=== PATIENT | male | born 1965 | race Caucasian/White ===

== ENCOUNTER 2024-04-14 01:47 | Observation (INO) | payer SELFPAY ==
[2024-04-14] VITALS (8 sets, daily range): BP systolic 134–201; BP diastolic 66–92; PULSE 72–148; RESP 17–24; TEMP 36.9–37.9; O2SAT 90–96; BMI 35.9; BMI 35.4
--- NOTE | 2024-04-14 01:53 | CT_ITS ---
PROCEDURE INFORMATION: Exam: CT Abdomen And Pelvis With Contrast Exam date and time: 04/14/2024 3:04 AM Age: 58 years old Clinical indication: Other: Discoloration around umbilicus; Additional info: SOA tachy sepsis, discoloration around umbilicus TECHNIQUE: Imaging protocol: Computed tomography of the abdomen and pelvis with contrast. 3D rendering (Not supervised by radiologist): MIP and/or 3D reconstructed images were created by the technologist. Radiation optimization: All CT scans at this facility use at least one of these dose optimization techniques: automated exposure control; mA and/or kV adjustment per patient size (includes targeted exams where dose is matched to clinical indication); or iterative reconstruction. Contrast material: ISOVUE; Contrast volume: 70 ml; Contrast route: IV; COMPARISON: CT ANGIO CHEST PE PROTOCOL 04/14/2024 3:04 AM FINDINGS: Lungs: Focal airspace disease is seen in the right lower lobe consistent with aspiration or infiltrate. Liver: Normal. No mass. Gallbladder and biliary ducts: Normal. No calcified stones. No ductal dilation. Pancreas: Normal. No ductal dilation. Spleen: Normal. No splenomegaly. Adrenal glands: Normal. No mass. Kidneys and ureters: Normal. No hydronephrosis. Stomach and bowel: Unremarkable. No obstruction. No mucosal thickening. Appendix: No evidence of appendicitis. Intraperitoneal space: Unremarkable. No free air. No significant fluid collection. Vasculature: Unremarkable. No abdominal aortic aneurysm. Lymph nodes: Unremarkable. No enlarged lymph nodes. Urinary bladder: Unremarkable as visualized. Reproductive: Unremarkable as visualized. Bones/joints: Degenerative disc disease with multilevel vacuum disc phenomena and disc space narrowing. Soft tissues: Fat containing periumbilical hernia, no bowel involvement.. IMPRESSION: 1. No acute abdominal or pelvic process. 2. Fat containing periumbilical hernia, no bowel involvement. No acute periumbilical process otherwise identified.
--- NOTE | 2024-04-14 01:53 | CT_ITS ---
PROCEDURE INFORMATION: Exam: CTA Chest With Contrast Exam date and time: 04/14/2024 3:04 AM Age: 58 years old Clinical indication: Shortness of breath; Additional info: SOA pleuritic pain tachy TECHNIQUE: Imaging protocol: Computed tomographic angiography of the chest with contrast. Exam focused on the arteries. 3D rendering (Not supervised by radiologist): MIP and/or 3D reconstructed images were created by the technologist. Radiation optimization: All CT scans at this facility use at least one of these dose optimization techniques: automated exposure control; mA and/or kV adjustment per patient size (includes targeted exams where dose is matched to clinical indication); or iterative reconstruction. Contrast material: ISOVUE; Contrast volume: 70 ml; Contrast route: INTRAVENOUS (IV); COMPARISON: CT ANGIO CHEST PE PROTOCOL 04/14/2024 3:04 AM FINDINGS: Pulmonary arteries: There is suboptimal enhancement of the pulmonary arteries, within this limitation no definite pulmonary emboli are noted but sensitivity for smaller emboli is limited. Aorta: Unremarkable. No aortic aneurysm. No aortic dissection. Lungs: Right lower lobe airspace disease likely infiltrate. Pleural spaces: Unremarkable. No pneumothorax. No pleural effusion. Heart: No coronary calcification is noted. . No cardiomegaly. No pericardial effusion. Lymph nodes: Unremarkable. No enlarged lymph nodes. Bones/joints: Unremarkable. No acute fracture. Soft tissues: Unremarkable. IMPRESSION: No evidence of pulmonary embolus, however there is suboptimal enhancement of the pulmonary arteries which limits sensitivity for smaller emboli. Right lower lobe airspace disease likely infiltrate.
--- NOTE | 2024-04-14 01:54 | XR_ITS ---
PROCEDURE INFORMATION: Exam: XR Chest Exam date and time: 04/14/2024 2:11 AM Age: 58 years old Clinical indication: Shortness of breath; Additional info: SOA TECHNIQUE: Imaging protocol: Radiologic exam of the chest. Views: 1 view. Total images: 1 COMPARISON: No relevant prior studies available. FINDINGS: Lungs: Unremarkable. No consolidation. No pulmonary vascular congestion or edema. Pleural spaces: Unremarkable. No pleural effusion. No pneumothorax. Heart/Mediastinum: Unremarkable. No cardiomegaly. No mediastinal widening or hilar enlargement. Bones/joints: Unremarkable. IMPRESSION: No radiographically acute cardiopulmonary process.
--- NOTE | 2024-04-14 01:56 | ECG_ITS ---
APPROVED REPORT Exam: Resting ECG HR:137 bpm ECG Measurements Heart Rate 137 AXES MO 162 P 57 QRSd 101 QRS 68 QT 366 T 58 QTc 446 Conclusion SINUS TACHYCARDIA POSSIBLE RIGHT VENTRICULAR CONDUCTION DELAY [RSR (QR) IN V1/V2] NONSPECIFIC ST & T-WAVE ABNORMALITY NO STEMI Electronically signed by : POOJA JASSO, 04/14/2024 06:53:03
--- NOTE | 2024-04-14 02:12 | [facility].EDGENADL ---
Discharge Plan Disposition Chief Complaint: PAIN Referrals Follow up/Referrals: Provider,Referral, [Primary Care Provider] - See instructions Clinical Impressions Clinical Impression: Sepsis, Pneumonia, Elevated hemoglobin A1c, Acidosis, lactic Print Language Print Language: [place] Discharge ED Provider: Larisa Rodriguez General Adult HPI General Chief complaint: PAIN Stated complaint: High HR, SOB Time Seen by Provider: 04/14/24 01:48 Mode of Arrival: Ambulatory Source of Information: Patient Limitations: No Limitations Description of Symptoms (Recalled from ER Triage Doc. by RN): Patient presents to ED with c/o of sharp pain to his middle right side back area when he coughs or takes a deep breath. Patient reports he has not felt well in over a week with upper respiratory symptoms. patient states his apple watch went off and alarmed him that his HR was 150 as well. History of Present Illness HPI narrative: 58-year-old male who reports he has not been to a primary care doctor in more than 25 years and therefore reports no chronic medical conditions, no daily medications presents to the ER with complaints of pain in his right middle back with deep inspiration. He reports he has not felt well in over a week with upper respiratory symptoms and states his cough has been worse in the last 3 days. He has not had documented fever at home. He reports after the pain started, patient looked at his Apple Watch and it was alarming that his heart rate was 150. He states his heart feels like it is racing, he states at this moment he is not short of breath but he has been experiencing short of breath and has pain with deep breathing as previously described. He reports no history of tobacco use, he states he is having a productive cough and that the material he is coughing up smells like . When examining the patient, I asked how long he had had swelling in his legs and he states 5 to 10 years. He also had discoloration around the umbilicus and states that has been present just as long. He has no known cardiac history. He reports no abdominal pain, nausea, and, diarrhea. He reports no dysuria or hematuria. No headache or dizziness. No numbness, tingling, or weakness. Related Data Allergies Allergy/AdvReac Type Severity Reaction Status Date / Time morphine AdvReac Nausea Verified 04/14/24 02:06 [facility] Disclaimer: The information contained in this section may have been updated after the patient was seen, as this information can be updated by other users. Social History Smoking Status: Never smoker alcohol intake: current alcohol intake frequency: holidays/special occasions only current occupational status: other Travel in the last 8 weeks: None ROS Obtained: Yes Systems reviewed as appropriate & no additional complaints except as documented Per HPI Physical Exam General General appearance: alert and obese Comment: Ill-appearing Head Head exam: atraumatic and normocephalic Eye Eye exam: Present PERRL and EOMI ENT ENT exam: Present mucous membranes moist Neck Neck exam: Present normal inspection and full ROM Chest Chest inspection: Present symmetric chest wall rise Respiratory Respiratory exam: Present other (Tachypnea, saturating 88 to 92% on room air on arrival); Absent normal lung sounds bilaterally (Breath sounds diminished, Rales at the right lung base), respiratory distress, wheezes or stridor Cardiovascular Cardiovascular exam: Present normal rhythm and tachycardia Abdominal Exam Abdominal exam: Present soft; Absent distention, tenderness, guarding or rebound Comment: Yellow?brown discoloration of patient's skin in the periumbilical area Extremities Exam Extremities exam: Present full ROM, edema (Pitting edema in lower extremities) and other (Significant venous stasis changes of bilateral lower extremities with erythema, dryness, no tenderness); Absent calf tenderness Back Exam Back exam: Absent tenderness Neurological Exam Neurological exam: Present alert, oriented X3, CN II-XII intact and normal gait; Absent motor sensory deficit Psychiatric Psychiatric exam: Present normal affect and normal mood Skin Skin exam: Present warm and dry Medical Decision Making Medical Records Screening: Per USPSTF and CDC recommendations, given the prevalence of disease in our region, it is our hospital?s policy to screen for HIV and viral Hepatitis for all patients aged 18 and over and those with ongoing risk factors. Luis Armando Inquiry Pt receiving controlled substance: No Vital Signs: 04/14/24 01:47 04/14/24 02:04 04/14/24 02:21 Temperature 100.2 F H Temperature Source Oral Pulse Rate 134 H Pulse Rate [Right Brachial] 148 H Respiratory Rate 24 22 Blood Pressure 172/87 H Blood Pressure [Right Radial Artery] 201/92 H Blood Pressure Mean [Right Radial Artery] 128 Blood Pressure Source [Right Radial Artery] Automatic Cuff Blood Pressure Position [Right Radial Artery] Supine 02 Sat by Pulse Oximetry 90 L 95 94 L Oxygen Delivery Method Room Air Nasal Cannula Nasal Cannula Oxygen Flow Rate (LPM) 2 2 Lab Data Lab Results 04/14/24 01:53: VBG pH 7.37, VBG pCO2 43.5, VBG pO2 29.5, VBG HCO3 24.7, VBG Total CO2 26.0, VBG O2 Saturation 56.5, VBG Base Excess -0.6, VBG Lactic Acid 2.3 H 04/14/24 02:10: WBC 14.2 H, RBC 5.33, Hgb 15.7, Hct 48.2, MCV 90.4, MCH 29.5, MCHC 32.6, RDW 13.7, Plt Count 254, MPV 9.3, Neut % (Auto) 83.6 H, Lymph % (Auto) 12.8, [place] % (Auto) 2.4, Eos % (Auto) 0.1, Baso % (Auto) 0.5, Neut # (Auto) 11.9 H, Lymph # (Auto) 1.8, [place] # (Auto) 0.3, Eos # (Auto) 0.0, Baso # (Auto) 0.1, PT 10.7, INR 0.97, APTT 25.9, Sodium 134 L, Potassium 4.1, Chloride 96 L, Carbon Dioxide 25, Anion Gap 17.1 H, BUN 19, Creatinine 1.10, Estimated Creat Clear 128, Estimated GFR 68, Est GFR ( Amer) 83, Glucose 116 H, Hemoglobin A1c 6.2 H, Calcium 9.0, Total Bilirubin 1.0, AST 62 H, ALT 36, Alkaline Phosphatase 77, Troponin I < 0.01, NT-Pro-B Natriuret Pep < 20.0, Total Protein 8.5 H, Albumin 4.8, Globulin 3.7 H, Albumin/Globulin Ratio 1.3, Triglycerides 110, Cholesterol 157, LDL Cholesterol Direct 96.05 L, VLDL Cholesterol 22, HDL Cholesterol 33 L, Cholesterol/HDL Ratio 4.8 H 04/14/24 02:10 04/14/24 02:10 Orders (Tests/Meds): ED MEDICATIONS Generic Name Dose Route Start Last Admin Trade Name Freq PRN Reason Stop Dose Admin Sodium Chloride 1,000 mls @ 100 mls/hr 04/14/24 01:53 04/14/24 02:18 Sod Chlor 0.9% 1000ml Bag IV 04/14/24 11:52 100 mls/hr .Q10H ONE Administration Vancomycin HCl 2,000 mg/ 250 mls @ 125 mls/hr 04/14/24 02:15 04/14/24 03:29 Sodium Chloride IV 04/14/24 04:14 125 mls/hr ONCE ONE Administration Lactated Ringer's 1,000 mls @ 999 mls/hr 04/14/24 03:18 Lactated Ringer's 1000 Ml Bag IV 04/14/24 04:18 .Q1H1M ONE Miscellaneous 1 each 04/14/24 02:00 04/14/24 02:15 Vancomycin Consult Request NOTAPPLIC 05/14/24 01:59 1 each CONSULT PHARMACY [facility]ANG Administration Sodium Chloride 3 ml 04/14/24 03:17 Sodium Chloride 3% 15ml Neb IH 05/14/24 03:16 ONCE PRN INDUCE SPUTUM COLLECTION Discontinued Medications Generic Name Dose Route Start Last Admin Trade Name Freq PRN Reason Stop Dose Admin Acetaminophen 1,000 mg 04/14/24 02:19 04/14/24 02:20 Acetaminophen 500mg Tab PO 04/14/24 02:20 1,000 mg ONCE ONE Administration Aspirin 324 mg 04/14/24 01:53 04/14/24 02:18 Aspirin 81mg Chewable Tablet PO 04/14/24 01:54 324 mg ONCE ONE Administration Piperacillin Sod/Tazobactam 100 mls @ 200 mls/hr 04/14/24 01:55 04/14/24 02:51 Sod 4.5 gm/ Sodium Chloride IV 04/14/24 02:24 200 mls/hr ONCE ONE Administration Iopamidol 70 ml 04/14/24 03:13 04/14/24 03:14 Iopamidol-370 (76%);100ml Bottle IV 04/14/24 03:14 70 ml ONCE ONE Administration Sodium Chloride 10 ml 04/14/24 03:13 04/14/24 03:14 Sodium Chloride 0.9% 10ml Syr (Rad Only) IV 04/14/24 03:14 10 ml ONCE ONE Administration Sodium Chloride 50 ml 04/14/24 03:13 04/14/24 03:14 0.9 % Sodium Chloride 50 Ml Vial IV 04/14/24 03:14 50 ml ONCE ONE Administration ORDERS Category Date Time Status CT abdomen pelvis w con Stat Cat Scan 04/14/24 01:[address] angio chest PE protocol Stat Cat Scan 04/14/24 01:53 Taken POCUS Point of Care (ER Only) Stat Exams 04/14/24 01:53 Completed XR chest portable Stat Exams 04/14/24 01:54 Completed Activated Partial Thrombo Time Stat Lab 04/14/24 02:10 Completed Complete Blood Count Auto Diff Stat Lab 04/14/24 02:10 Completed Comprehensive Metabolic Panel Stat Lab 04/14/24 02:10 Completed Full Resp Panel w/COVID ([facility]) Routine Lab 04/14/24 02:11 Received Hemoglobin A1C Stat Lab 04/14/24 02:10 Completed Lipid Panel Stat Lab 04/14/24 02:10 Completed NT Pro Brain Natriuretic Pep. Stat Lab 04/14/24 02:10 Completed Prothrombin Time INR Stat Lab 04/14/24 02:10 Completed Troponin I Q3H Lab 04/14/24 05:00 Ordered Troponin I Q3H Lab 04/14/24 08:00 Ordered Troponin I Stat Lab 04/14/24 02:10 Completed Urinalysis and Microscopic Stat Lab 04/14/24 01:53 Ordered Blood Culture Stat Micro 04/14/24 02:48 Received Sputum Culture & Gram Stain Stat Micro 04/14/24 03:17 Ordered Venous Blood Gas Stat RT 04/14/24 01:53 Completed Tissue Perfus/Sepsis Re-Eval Sepsis Re-Evaluation Performed: Yes Date Performed: 04/14/24 Time Performed: 03:38 Medical Decision Narrative: In summary, this 58-year-old male with no known chronic medical conditions presents to the emergency department today with shortness of breath, cough, sharp back pain worse with deep inspiration. On initial evaluation patient is tachycardic, tachypneic, initially hypoxic after ambulating to the room, placed on 2 L nasal cannula, GCS 15 with no focal neurologic deficits, lungs with rales on the right, no wheezing, diminished breath sounds throughout, abdomen is soft, nontender, he has periumbilical discoloration as well as edema and venous stasis changes in the bilateral lower extremities. He was significantly hypertensive on arrival as well as tachycardic with a regular rhythm. Patient meets sepsis criteria on arrival and is receiving broad-spectrum antibiotics initially, I am administering IV fluids as well however he is not receiving a full 30 mL/kg bolus since he has evidence of peripheral edema and I am concerned for possible fluid overload. Differential diagnosis includes but is not limited to viral syndrome including COVID, influenza, also considered pneumonia, PE, ACS, I considered dissection but patient does not have radiating symptoms, symptoms are more consistent with PE than dissection. With the periumbilical discoloration I suspect patient has chronic underlying comorbidities, I did consider pancreatic abnormality, also considered possibility of diabetes, CHF, bacteremia, among others. Based on these concerns, I ordered broad workup including serum labs, blood cultures, cardiac workup, CT imaging of the chest, abdomen, pelvis. I also performed and personally interpreted [id number] ultrasound which demonstrates possible consolidation at the right lung base, no significant B-lines, patient's heart is hyperdynamic, RV to LV ratio is approaching 1:1 but no overt right heart strain. No pericardial effusion. See procedure note for details. ECG personally interpreted demonstrates sinus tachycardia, rate 137, normal axis, normal OK and QTc, no STEMI. In addition to interventions listed above, patient is also receiving Tylenol for fever and aspirin for cardioprotective properties. Labs personally reviewed demonstrate VBG with pH 7.37, lactic on VBG elevated at 2.3, patient does not have hypercarbia on VBG. CBC with leukocytosis WBC 14.2, normal hemoglobin and platelets, PT/INR and APTT normal, CMP without acute actionable electrolyte abnormality, patient has A1c 6.2 which is elevated concerning for prediabetes/diabetes, troponin undetectably low less than 0.01 and BNP undetectable less than 20, these are reassuring against acute cardiac pathology. XR personally interpreted demonstrates findings in the bilateral lungs appear viral, no obvious lobar infiltrate, no overt pulmonary edema, see radiology read for final interpretation. On reassessment after having received fluids, antibiotics, antipyretics patient's heart rate and blood pressure are improving. CT imaging personally interpreted demonstrate no obvious PE though contrast timing was poor, patient does have a right lower, posterior lobe pneumonia. See radiology read for final interpretation. I personally interpreted CT abdomen pelvis and do not appreciate obvious acute intra-abdominal pathology. Notably pancreas appears normal. See radiology read for final interpretation. On reassessment patient is oxygenating in the mid to low 90s on 2 L nasal cannula and respiratory rate has improved. His heart rate continues to improve as well. He states his pain that initially brought him in has resolved. I recommended admission given he has a new oxygen requirement, sepsis, and pneumonia. Patient and family at bedside agreeable to this plan. I discussed this case with the hospitalist including patient's presentation, labs, and imaging, and the patient was accepted for admission. Procedures Miscellaneous Procedure Procedure Performed: Limited lung ultrasound A focused ultrasound exam of the pleural spaces was performed to evaluate for pneumothorax, pulmonary edema, pleural effusion and/or consolidation. The ultrasound was performed with the following indications, as noted in the H&P: Dyspnea, hypoxia Identified structures: Bilateral thoracic cavities were examined. Findings: Lung sliding: -Present bilaterally B-lines: Trace bilaterally, more likely to be artifactual Pleural effusion: None Consolidation: Slight right lower, lateral lobe Impression: - Pneumothorax absent - Pleural effusion absent - B-lines trace bilateral - Consolidation right lower lateral Images were saved to permanent archive The study was technically adequate CPT 44070-78 This study was performed by mt, and I personally interpreted all images/videos. Based on my clinical judgement, these images were adequate and not necessitate further imaging. Limited Cardiac Ultrasound Indication: Shortness of breath Identified cardiac views: [-Cardiac parasternal long (limited view secondary to body habitus)axis] [-Cardiac parasternal short axis] (limited view secondary to body habitus) [-Cardiac apical four-chamber] [-Cardiac subxiphoid] Findings: Cardiac activity present, no gross wall motion abnormality, no pericardial effusion, no overt right heart strain however patient's RV: LV ratio is approaching 1:1 Impression: -Cardiac activity present, no gross wall motion abnormality, no pericardial effusion, no overt right heart strain however patient's RV: LV ratio is approaching 1:1 Images were saved to permanent archive The study was technically adequate CPT: 05915 This study was performed by mt, and I personally interpreted all images/videos. Based on my clinical judgement, these images were adequate and did not necessitate further imaging. Critical Care Critical Care Time Critical Care Time: Yes Attestation: On , the high probability of a clinically significant, sudden or life threatening deterioration of the following system(s) (respiratory, hemodynamic) required my full and direct attention, intervention and personal management. The time I documented below is in addition to time spent performing reported procedures but includes the following listed in this critical care notation. Total Time Total Critical Care Time: 35
[2024-04-14 02:13] LABS: Adenovirus,PCR Not Detected (NotDetected); Bordetella Pertussis Not Detected (NotDetected); Chlamydophila Pneumoniae, PCR Not Detected (NotDetected); Coronavirus 19, PCR Not Detected (NotDetected); Coronavirus 229E Not Detected (NotDetected); Coronavirus NL63 Not Detected (NotDetected); Coronavirus OC43 Not Detected (NotDetected); Coronovirus HKU1,PCR Not Detected (NotDetected); Influenza A, PCR Not Detected (NotDetected); Influenza AH1, 2009 Not Detected (NotDetected); Influenza AH1, PCR Not Detected (NotDetected); Influenza AH3,PCR Not Detected (NotDetected); Influenza B, PCR Not Detected (NotDetected); Mycoplasma Pneumoniae, PCR Not Detected (NotDetected); Parainfluenza 1, PCR Not Detected (NotDetected); Parainfluenza 2, PCR Not Detected (NotDetected); Parainfluenza 3, PCR Not Detected (NotDetected); Parainfluenza 4, PCR Not Detected (NotDetected); Respiratory Syncytial Virus Not Detected (NotDetected); Rhinovirus/Enterovirus Not Detected (NotDetected)
[2024-04-14] MEDS: VANCOMYCIN CONSULT REQUEST 1 EACH NOTAPPLIC (02:15)
[2024-04-14 02:16] LABS: Lactate Venous 2.3 mmol/L (0.4-2.0); VBG Base Excess -0.6 mmol/L (-2.4-2.3); VBG HCO3 24.7 mmol/L (23-30); VBG Oxygen Saturation 56.5 % (50-70); VBG PCO2 43.5 mmol/L (35-51); VBG PH 7.37 mmol/L (7.31-7.41); VBG PO2 29.5 mmol/L (28-40)
--- NOTE | 2024-04-14 02:17 | PC.NURSE ---
xray done at bedside
[2024-04-14] MEDS: ASPIRIN 81MG CHEWABLE TABLET 324 MG PO (02:18)
[2024-04-14] MEDS: 0.9 % SODIUM CHLORIDE 1000ML 1,000 ML 100 ML IV (02:18)
[2024-04-14] MEDS: ACETAMINOPHEN 500MG TAB 1000 MG PO (02:20)
--- NOTE | 2024-04-14 02:20 | PC.NURSE ---
Pt in sinus tachycardia per continuous heart monitor
[2024-04-14 02:27] LABS: Basophils # 0.1 K/mm3 (0-0.2); Basophils % 0.5 % (0.1-2.0); Eosinophils % 0.1 % (0.1-12.0); Hematocrit 48.2 % (42.0-52.0); Hemoglobin 15.7 g/dL (14.1-18.0); Lymphocytes # 1.8 K/mm3 (0.7-4.5); Lymphocytes % 12.8 % (10-50); Mean Corpuscular HGB Conc 32.6 g/dL (31.8-35.4); Mean Corpuscular Hemoglobin 29.5 pg (27.0-31.2); Mean Corpuscular Volume 90.4 fl (80-94); Mean Platelet Volume 9.3 fl (7.4-10.4); Monocytes # 0.3 K/mm3 (0.1-1.0); Monocytes % 2.4 % (1.7-9.3); Neutrophils # 11.9 K/mm3 (1.8-7.8); Neutrophils % 83.6 % (37.0-80.0); Platelet Count 254 K/mm3 (142-424); Red Blood Count 5.33 M/mm3 (4.60-6.20); Red Cell Distribution Width 13.7 % (11.5-17.5); White Blood Count 14.2 K/mm3 (4.8-10.8)
[2024-04-14 02:31] LABS: Albumin Level 4.8 g/dl (3.5-5.0); Chloride 96 mmol/L (98-107); Sodium 134 mmol/L (136-145)
[2024-04-14 02:32] LABS: Potassium 4.1 mmoL/L (3.5-5.1)
[2024-04-14 02:34] LABS: Alanine Aminotransferase 36 U/L (12-78); Albumin/Globulin Ratio 1.3 (1.1-1.8); Alkaline Phosphatase 77 U/L (38-126); Anion Gap 17.1 mEq/L (5-15); Aspartate Amino Transferase 62 U/L (17-59); Blood Urea Nitrogen 19 mg/dl (9-20); Carbon Dioxide 25 mmol/L (22.0-30.0); Chol/HDL Ratio 4.8 (1-3.5); Cholesterol 157 mg/dl (140-200); Creatinine Clearance Estimated 128 mL/min (50-200); Estimated Glomerular Filt Rate 68 ml/min (>60); GFR (African American) 83 ML/MIN (>60); Globulin 3.7 g/dL (1.3-3.2); HDL Cholesterol 33 mg/dl (40-60); Total Protein,Serum 8.5 g/dl (6.3-8.2); Triglycerides 110 mg/dl (30-150); VLDL Cholesterol 22 mg/dL (0-40)
[2024-04-14 02:35] LABS: Glucose 116 mg/dl (74-100)
--- NOTE | 2024-04-14 02:38 | PC.NURSE ---
THIS RN CALLED LAB TO HELP STICK PATIENT FOR CULTURES DUE TO PATIENT BEING A HARD STICK. AWAITING ELECTRICAL JOURNEYMAN AT THIS TIME. DELAY ON ABX DUE TO THIS. PROVIDER AWARE.
[2024-04-14 02:45] LABS: Direct LDL Cholesterol 96.05 mg/dL (100-129); NT Pro Brain Natriuretic Pep. < 20.0 pg/mL (0-125)
[2024-04-14 02:46] LABS: Activated Partial Thrombo Time 25.9 seconds (22.5-28.5); INR 0.97 (0.9-1.1); Prothrombin Time 10.7 seconds (9.2-12.1)
[2024-04-14 02:49] LABS: Troponin I < 0.01 ng/ml (0.00-0.034)
[2024-04-14] MEDS: PIPERACILLIN/TAZO 4.5 GM in 0.9 % SODIUM CHLORIDE 100 ML IV (02:51)
[2024-04-14] MEDS: 0.9 % SODIUM CHLORIDE 50 ML VIAL IV (03:14)
[2024-04-14] MEDS: SODIUM CHLORIDE 0.9% 10ML SYR (RAD ONLY) 10 ML IV (03:14)
[2024-04-14] MEDS: IOPAMIDOL-370 (76%);100ML BOTTLE 70 ML IV (03:14)
[2024-04-14 03:18] LABS: Hemoglobin A1C 6.2 % (4.0-6.0)
[2024-04-14] MEDS: VANCOMYCIN HCL 2,000 MG in 0.9 % SODIUM CHLORIDE 250 ML 125 MG IV (03:29)
[2024-04-14] MEDS: LACTATED RINGERS 1000ML 1,000 ML 999 ML IV (03:37)
[2024-04-14 03:47] LABS: Human Metapneumovirus Detected (NotDetected)
--- NOTE | 2024-04-14 04:40 | PC.NURSE ---
Patient arrived to floor via wheelchair from ED at 04:39.
[2024-04-14 06:16] LABS: Reflex Lactic Add Lactic Reflex
--- NOTE | 2024-04-14 06:16 | EXP.HP ---
History of Present Illness *Admission Date: 04/14/24 *Reason for visit:: Shortness of breath *History of present illness: 58-year-old male who reports he has not been to a primary care doctor in more than 25 years and therefore reports no chronic medical conditions, no daily medications presents to the ER with complaints of pain in his right middle back with deep inspiration. He reports he has not felt well in over a week with upper respiratory symptoms and states his cough has been worse in the last 3 days. He has not had documented fever at home. He reports after the pain started, patient looked at his Apple Watch and it was alarming that his heart rate was 150. He states his heart feels like it is racing, he states at this moment he is not short of breath but he has been experiencing short of breath and has pain with deep breathing as previously described. He reports no history of tobacco use, he states he is having a productive cough and that the material he is coughing up smells like . When examining the patient, I asked how long he had had swelling in his legs and he states 5 to 10 years. He also had discoloration around the umbilicus and states that has been present just as long. He has no known cardiac history. He reports no abdominal pain, nausea, and, diarrhea. He reports no dysuria or hematuria. No headache or dizziness. No numbness, tingling, or weakness. Reports large skin mass that is bleeding. Does not take any medicines No recent sick contacts Feels better currently No concerns or complaints [facility] Disclaimer: The information contained in this section may have been updated after the patient was seen, as this information can be updated by other users. Family History (Updated 04/14/24 @ 05:02 by Anika Lambert RN) Other Family history of heart disease Family history of lymphoma Social History (Updated 04/14/24 @ 05:02 by Anika Lambert RN) Smoking Status: Never smoker alcohol intake: current alcohol intake frequency: holidays/special occasions only current occupational status: other Travel in the last 8 weeks: None Contact w/someone who lives/traveled outside [place] past 30 days?: No Exposure to someone with infectious disease in past 14 days?: No Do you have a fever (greater than 100.4 F or 38 C)?: No Have you tested positive for COVID-19: No Exposed to someone with COVID-19 in past 14 days?: No Do you have a sore throat?: No Do you have a cough?: No Do you have any weakness?: No Are you experiencing any nausea/vomitting?: No Do you have any diarrhea?: No Are you experiencing any unusual bleeding?: No Do you have any muscle aches/pain?: No Do you have any abdominal pain?: No Are you experiencing loss of taste or smell?: No Other Medical History Have you received the Flu Vaccine for this season: No Have you received the Pneumonia Vaccine: No Review of Systems Review of Systems Review of systems:: pertinent systems reviewed and negative unless documented below Meds Home Medications and Allergies Home Medications ?Medication ?Instructions ?Recorded ?Confirmed ?Type semaglutide (weight loss) 0.25 0.25 mg SQ WEEKLY 04/14/24 04/14/24 History mg/0.5 mL subcutaneous pen injector New Prescriptions to Start Prescriptions: Allergies Allergy/AdvReac Type Severity Reaction Status Date / Time morphine AdvReac Nausea Verified 04/14/24 02:06 Exam Data for Last 24 hours Vital signs and Labs for Last 24 Hours: Temp Pulse Resp BP Pulse Ox O2 Del Method O2 Flow Rate 98.9 F 121 H 18 135/73 93 L Nasal Cannula 2 04/14/24 04:45 04/14/24 04:45 04/14/24 04:45 04/14/24 04:45 04/14/24 04:45 04/14/24 05:00 04/14/24 05:00 Laboratory Results - last 24 hr 04/14/24 01:53: VBG pH 7.37, VBG pCO2 43.5, VBG pO2 29.5, VBG HCO3 24.7, VBG Total CO2 26.0, VBG O2 Saturation 56.5, VBG Base Excess -0.6, VBG Lactic Acid 2.3 H 04/14/24 02:10: WBC 14.2 H, RBC 5.33, Hgb 15.7, Hct 48.2, MCV 90.4, MCH 29.5, MCHC 32.6, RDW 13.7, Plt Count 254, MPV 9.3, Neut % (Auto) 83.6 H, Lymph % (Auto) 12.8, [place] % (Auto) 2.4, Eos % (Auto) 0.1, Baso % (Auto) 0.5, Neut # (Auto) 11.9 H, Lymph # (Auto) 1.8, [place] # (Auto) 0.3, Eos # (Auto) 0.0, Baso # (Auto) 0.1, PT 10.7, INR 0.97, APTT 25.9, Sodium 134 L, Potassium 4.1, Chloride 96 L, Carbon Dioxide 25, Anion Gap 17.1 H, BUN 19, Creatinine 1.10, Estimated Creat Clear 128, Estimated GFR 68, Est GFR ( Amer) 83, Glucose 116 H, Hemoglobin A1c 6.2 H, Calcium 9.0, Total Bilirubin 1.0, AST 62 H, ALT 36, Alkaline Phosphatase 77, Troponin I < 0.01, NT-Pro-B Natriuret Pep < 20.0, Total Protein 8.5 H, Albumin 4.8, Globulin 3.7 H, Albumin/Globulin Ratio 1.3, Triglycerides 110, Cholesterol 157, LDL Cholesterol Direct 96.05 L, VLDL Cholesterol 22, HDL Cholesterol 33 L, Cholesterol/HDL Ratio 4.8 H 04/14/24 02:11: Chlamy pneumoniae PCR Not detected, Adenovirus (PCR) Not detected, B. pertussis DNA (PCR) Not detected, Coronavirus OC43 (PCR) Not detected, Coronavirus HKU1 (PCR) Not detected, Coronavirus 229E (PCR) Not detected, SARS-CoV-2 (PCR) Not detected, Coronavirus NL63 (PCR) Not detected, Human Metapneumovir PCR Detected A, Influenza A (H1) PCR Not detected, Influ A (H1N1/09) PCR Not detected, Influenza A (H3) PCR Not detected, Influenza Type A (PCR) Not detected, Influenza Type B (PCR) Not detected, M. pneumoniae (PCR) Not detected, Parainfluenza 1 (PCR) Not detected, Parainfluenza 2 (PCR) Not detected, Parainfluenza 3 (PCR) Not detected, Parainfluenza 4 (PCR) Not detected, RSV (PCR) Not detected, Entero/Rhino (PCR) Not detected I & O for Last 24 hours: Intake & Output 04/11/24 04/12/24 04/13/24 04/14/24 23:59 23:59 23:59 23:59 Weight 125.01 kg Constitutional Constitutional: mild distress and cooperative *Routine HEENT Exam Head: Present normocephalic Eye: Present EOMI ENT: Present mucous membranes moist *Routine Neck Exam Neck: Present supple and full ROM Routine Chest/Breast/Axilla Exam Chest wall: Present mass *Routine Respiratory Exam Respiratory: Present rales and wheezes *Routine Cardiovascular Exam Cardiovascular: Present Normal S1, Normal S2 and tachycardia *Routine Abdominal Exam Abdominal: Present soft and normoactive bowel sounds *Routine Rectal Exam Rectal:: deferred *Routine Genitalia Exam Genitalia:: deferred *Routine Extremities Exam Extremities: Absent cyanosis or clubbing *Routine Skin Exam Comments: large bleeding mass near collar bone *Routine Neurological Exam Neurological: Present alert and oriented X3 Assessment and Plan *Assessment and plan (1) Infection due to human metapneumovirus (hMPV): Status: Acute Category: Medical Code(s): B34.8 - Other viral infections of unspecified site (2) Acidosis, lactic: Status: Acute Category: Medical Code(s): E87.20 - Acidosis, unspecified (3) Pneumonia: Status: Acute Category: Medical Code(s): J18.9 - Pneumonia, unspecified organism (4) Elevated hemoglobin A1c: Status: Acute Category: Medical Code(s): R73.09 - Other abnormal glucose (5) Sepsis: Status: Acute Category: Medical Code(s): A41.9 - Sepsis, unspecified organism (6) Skin mass: Status: Acute Category: Medical Code(s): R22.9 - Localized swelling, mass and lump, unspecified Plan 58-year-old no prior medical evaluations presenting sepsis secondary to RSV pneumonia. Received antibiotics in the ER volume with clinical improvement Pneumonia, - Received Vanco and Zosyn in the ER, defer to day team regarding deascalation or continuation -Respiratory therapy -DuoNebs -Supplemental oxygen -Robitussin -Supportive care Sepsis on arrival AGMA lactic acidosis -On antibiotics -Continue volume - folow up cultures Skin mass - ulcerated mass, concerning for skin cancer - consult gen surg for excision and biopsy DM HLD elevated ASCVD risk: 28% 10 year - SSI - high intensity statin lipitor 40mg started for primary prevention HTN - defer durrent antihypertensive while septic - given DM and HTN would benefit from edwin arb initiation prior to discharge for renal protection
--- NOTE | 2024-04-14 06:23 | CA_ITS ---
APPROVED REPORT EXAM: Comprehensive 2D, Doppler, and color-flow Echocardiogram Branch Chief: JAYCEE Conway, RVS Ht: 6 ft 2 in Wt: 275lbs BSA: 2.49 BP: 135/73 mmHg Rhythm: NSR Indications: Tachycardia, Pneumonia, SOA, Cough, HTN, DM Echo Enhancing Agent Comments: Poor acoustic window due to chest circumference 2D Dimensions Left Atrium 3.80 cm M: 3.0 - 4.0 LA Volume 73.10 mL LA Volume Index 29.36 mL/m2 (M/F) 16-34 M-Mode Dimensions RVDd 2.24 cm (0.9-2.6) LA Diam 3.93 cm (1.9-4.0) LVDd 5.02 cm (3.5-5.7) LVDs 3.54 cm (3.5-5.7) IVSd 0.84 cm (0.6-1.1) PWd 0.84 cm (0.6-1.1) EF (Teich) 56.20% EPSs 0.57 cm FS 29.50% EDV (Teich) 119.30 mL TAPSE 2.12 (<1.7) ESV (Teich) 52.30 mL LV Diastology E Decel Time 173 (160-240 msec) E/A Ratio 0.94 MED A' 16.00 cm/s LAT A' 10.90 cm/s Aortic Valve DAVID Index 0.99 cm2/m2 AoV Peak Madhu. 147.0 (50-130 cm/s) AO Peak GR. 8.60 mmHg AO Mean GR. 4.30 (<5 mmHg) AO VTI 23.2 (18-25 cm) DAVID (VTI) 2.52 (2.5-4.5 cm2) Mitral Valve MV A Velocity 71.0 (40-130 cm/s) E/A Ratio 0.94 Left Ventricle The left ventricle is normal size. The left ventricular systolic function is normal. The left ventricular ejection fraction is within the normal range. There is increased LV wall thickness. There is normal LV segmental wall motion. The left ventricular diastolic function is normal. LVEF is 55%. Right Ventricle The right ventricle is normal size. The right ventricular systolic function is normal. Atria The left atrium size is normal. The right atrium size is normal. There is no Doppler evidence of interatrial shunt. Aortic Valve The aortic valve is mildly thickened. There is no aortic valvular stenosis. Trace aortic regurgitation. Mitral Valve The mitral valve is normal in structure. No evidence of mitral valve stenosis. Trace mitral regurgitation. Tricuspid Valve Tricuspid valve is grossly normal in structure and function. Trace tricuspid regurgitation. There is insufficient TR jet to estimate RVSP. Pulmonic Valve The pulmonary valve is normal in structure. Trace pulmonic regurgitation. Great Vessels The aortic root is normal in size. The ascending aorta is not well-visualized. IVC is normal in size and collapses >50% with inspiration. Pericardium There is no pericardial effusion. Other Information Study Quality: Fair Conclusion Normal biventricular systolic function. No significant valvular stenosis or regurgitation. Electronically signed by : Idalia Mars MD 04/14/2024 13:09:32
[2024-04-14 06:36] LABS: Troponin I 0.02 ng/ml (0.00-0.034)
[2024-04-14 07:42] LABS: Microscopic, Urine URINE MICROSCOPIC (MICROSCOPIC)
[2024-04-14 07:52] LABS: Appearance,Urine CLEAR (Clear); Bilirubin,Urine Negative (Negative); Blood, Urine TRACE-I (Negative); Color,Urine YELLOW (Yellow); Glucose,Urine (UA) Negative (Negative); Ketones,Urine Negative (Negative); Leukocyte Esterase,Urine Negative (Negative); Nitrate,Urine Negative (Negative); Protein,Urine Negative (Negative); Specific Gravity, Urine <= 1.005 (1.005-1.030); Urobilinogen,Urine 0.2 EU/dl (0.2)
[2024-04-14] MEDS: ENOXAPARIN 40MG/0.4ML SYRINGE 40 MG SUBCUT (08:37)
[2024-04-14] MEDS: DOCUSATE SODIUM 100 MG CAPSULE PO (08:37)
[2024-04-14] MEDS: AZITHROMYCIN 250MG TABLET 500 MG PO (08:38)
--- NOTE | 2024-04-14 09:00 | P.CONS_ITS ---
History of Present Illness *Admission Date: 04/14/24 *Reason for visit:: Left shoulder apex lesion *History of present illness: This is a 58-year-old gentleman seen in consultation for evaluation regarding left shoulder apex lesion. He states that he noted a skin lesion approximately 3 years ago. He did not seek medical attention secondary to no insurance . He states that over the past few months the lesion has oozed and blood sometimes . He was admitted for further evaluation/management regarding pneumonia. He believes he is getting better with the breathing . Forwarded from admission H&P: 58-year-old male who reports he has not been to a primary care doctor in more than 25 years and therefore reports no chronic medical conditions, no daily medications presents to the ER with complaints of pain in his right middle back with deep inspiration. He reports he has not felt well in over a week with upper respiratory symptoms and states his cough has been worse in the last 3 days. He has not had documented fever at home. He reports after the pain started, patient looked at his Apple Watch and it was alarming that his heart rate was 150. He states his heart feels like it is racing, he states at this moment he is not short of breath but he has been experiencing short of breath and has pain with deep breathing as previously described. He reports no history of tobacco use, he states he is having a productive cough and that the material he is coughing up smells like . When examining the patient, I asked how long he had had swelling in his legs and he states 5 to 10 years. He also had discoloration around the umbilicus and states that has been present just as long. He has no known cardiac history. He reports no abdominal pain, nausea, and, diarrhea. He reports no dysuria or hematuria. No headache or dizziness. No numbness, tingling, or weakness. Reports large skin mass that is bleeding. Does not take any medicines No recent sick contacts Feels better currently No concerns or complaints [facility] Disclaimer: The information contained in this section may have been updated after the patient was seen, as this information can be updated by other users. Family History (Updated 04/14/24 @ 05:02 by Anika Lambert RN) Family history of heart disease Family history of lymphoma Social History (Updated 04/14/24 @ 05:02 by Anika Lambert RN) Smoking Status: Never smoker alcohol intake: current alcohol intake frequency: holidays/special occasions only current occupational status: other Travel in the last 8 weeks: None Contact w/someone who lives/traveled outside [place] past 30 days?: No Exposure to someone with infectious disease in past 14 days?: No Do you have a fever (greater than 100.4 F or 38 C)?: No Have you tested positive for COVID-19: No Exposed to someone with COVID-19 in past 14 days?: No Do you have a sore throat?: No Do you have a cough?: No Do you have any weakness?: No Are you experiencing any nausea/vomitting?: No Do you have any diarrhea?: No Are you experiencing any unusual bleeding?: No Do you have any muscle aches/pain?: No Do you have any abdominal pain?: No Are you experiencing loss of taste or smell?: No Meds Home Medications and Allergies Home Medications ?Medication ?Instructions ?Recorded ?Confirmed ?Type semaglutide (weight loss) 0.25 0.25 mg SQ WEEKLY 04/14/24 04/14/24 History mg/0.5 mL subcutaneous pen injector New Prescriptions to Start Prescriptions: Allergies Allergy/AdvReac Type Severity Reaction Status Date / Time morphine AdvReac Nausea Verified 04/14/24 02:06 Exam (Inpt) Vital signs and Labs for Last 24 Hours: Temp Pulse Resp BP Pulse Ox O2 Del Method O2 Flow Rate 98.9 F 121 H 18 135/73 93 L Nasal Cannula 2 04/14/24 04:45 04/14/24 04:45 04/14/24 04:45 04/14/24 04:45 04/14/24 04:45 04/14/24 08:00 04/14/24 08:00 Laboratory Results - last 24 hr 04/14/24 01:53: VBG pH 7.37, VBG pCO2 43.5, VBG pO2 29.5, VBG HCO3 24.7, VBG Total CO2 26.0, VBG O2 Saturation 56.5, VBG Base Excess -0.6, VBG Lactic Acid 2.3 H 04/14/24 02:10: WBC 14.2 H, RBC 5.33, Hgb 15.7, Hct 48.2, MCV 90.4, MCH 29.5, MCHC 32.6, RDW 13.7, Plt Count 254, MPV 9.3, Neut % (Auto) 83.6 H, Lymph % (Auto) 12.8, [place] % (Auto) 2.4, Eos % (Auto) 0.1, Baso % (Auto) 0.5, Neut # (Auto) 11.9 H, Lymph # (Auto) 1.8, [place] # (Auto) 0.3, Eos # (Auto) 0.0, Baso # (Auto) 0.1, PT 10.7, INR 0.97, APTT 25.9, Sodium 134 L, Potassium 4.1, Chloride 96 L, Carbon Dioxide 25, Anion Gap 17.1 H, BUN 19, Creatinine 1.10, Estimated Creat Clear 128, Estimated GFR 68, Est GFR ( Amer) 83, Glucose 116 H, H emoglobin A1c 6.2 H, Calcium 9.0, Total Bilirubin 1.0, AST 62 H, ALT 36, Alkaline Phosphatase 77, Troponin I < 0.01, NT-Pro-B Natriuret Pep < 20.0, Total Protein 8.5 H, Albumin 4.8, Globulin 3.7 H, Albumin/Globulin Ratio 1.3, Triglycerides 110, Cholesterol 157, LDL Cholesterol Direct 96.05 L, VLDL Cholesterol 22, HDL Cholesterol 33 L, Cholesterol/HDL Ratio 4.8 H 04/14/24 02:11: Chlamy pneumoniae PCR Not detected, Adenovirus (PCR) Not detected, B. pertussis DNA (PCR) Not detected, Coronavirus OC43 (PCR) Not detected, Coronavirus HKU1 (PCR) Not detected, Coronavirus 229E (PCR) Not detected, SARS-CoV-2 (PCR) Not detected, Coronavirus NL63 (PCR) Not detected, H uman Metapneumovir PCR Detected A, Influenza A (H1) PCR Not detected, Influ A (H1N1/09) PCR Not detected, Influenza A (H3) PCR Not detected, Influenza Type A (PCR) Not detected, Influenza Type B (PCR) Not detected, M. pneumoniae (PCR) Not detected, Parainfluenza 1 (PCR) Not detected, Parainfluenza 2 (PCR) Not detected, Parainfluenza 3 (PCR) Not detected, Parainfluenza 4 (PCR) Not detected, RSV (PCR) Not detected, Entero/Rhino (PCR) Not detected 04/14/24 05:53: Troponin I 0.02 04/14/24 07:09: Urine Color Yellow, Urine Appearance Clear, Urine pH 6.0, Ur Specific [place] <= 1.005, Urine Protein Negative, Urine Glucose (UA) Negative, Urine Ketones Negative, Urine Blood Trace-i, Urine Nitrate Negative, Urine Bilirubin Negative, Urine Urobilinogen 0.2, Ur Leukocyte Esterase Negative I & O for Labs for Last 24 Hours: Intake & Output 04/11/24 04/12/24 04/13/24 04/14/24 11:59 11:59 11:59 11:59 Weight 275 lb 9.6 oz Constitutional: no acute distress Respiratory: Absent respiratory distress Comment:: 3 cm complex raised/fungating left shoulder apex lesion with minimal sanguinous ooze. No evidence of surrounding infection. Results Labs 04/14/24 02:10 04/14/24 02:10 Labs: Laboratory Results - last 24 hr 04/14/24 01:53: VBG pH 7.37, VBG pCO2 43.5, VBG pO2 29.5, VBG HCO3 24.7, VBG Total CO2 26.0, VBG O2 Saturation 56.5, VBG Base Excess -0.6, VBG Lactic Acid 2.3 H 04/14/24 02:10: WBC 14.2 H, RBC 5.33, Hgb 15.7, Hct 48.2, MCV 90.4, MCH 29.5, MCHC 32.6, RDW 13.7, Plt Count 254, MPV 9.3, Neut % (Auto) 83.6 H, Lymph % (Auto) 12.8, [place] % (Auto) 2.4, Eos % (Auto) 0.1, Baso % (Auto) 0.5, Neut # (Auto) 11.9 H, Lymph # (Auto) 1.8, [place] # (Auto) 0.3, Eos # (Auto) 0.0, Baso # (Auto) 0.1, PT 10.7, INR 0.97, APTT 25.9, Sodium 134 L, Potassium 4.1, Chloride 96 L, Carbon Dioxide 25, Anion Gap 17.1 H, BUN 19, Creatinine 1.10, Estimated Creat Clear 128, Estimated GFR 68, Est GFR ( Amer) 83, Glucose 116 H, H emoglobin A1c 6.2 H, Calcium 9.0, Total Bilirubin 1.0, AST 62 H, ALT 36, Alkaline Phosphatase 77, Troponin I < 0.01, NT-Pro-B Natriuret Pep < 20.0, Total Protein 8.5 H, Albumin 4.8, Globulin 3.7 H, Albumin/Globulin Ratio 1.3, Triglycerides 110, Cholesterol 157, LDL Cholesterol Direct 96.05 L, VLDL Cholesterol 22, HDL Cholesterol 33 L, Cholesterol/HDL Ratio 4.8 H 04/14/24 02:11: Chlamy pneumoniae PCR Not detected, Adenovirus (PCR) Not detected, B. pertussis DNA (PCR) Not detected, Coronavirus OC43 (PCR) Not detected, Coronavirus HKU1 (PCR) Not detected, Coronavirus 229E (PCR) Not detected, SARS-CoV-2 (PCR) Not detected, Coronavirus NL63 (PCR) Not detected, H uman Metapneumovir PCR Detected A, Influenza A (H1) PCR Not detected, Influ A (H1N1/09) PCR Not detected, Influenza A (H3) PCR Not detected, Influenza Type A (PCR) Not detected, Influenza Type B (PCR) Not detected, M. pneumoniae (PCR) Not detected, Parainfluenza 1 (PCR) Not detected, Parainfluenza 2 (PCR) Not detected, Parainfluenza 3 (PCR) Not detected, Parainfluenza 4 (PCR) Not detected, RSV (PCR) Not detected, Entero/Rhino (PCR) Not detected 04/14/24 05:53: Troponin I 0.02 04/14/24 07:09: Urine Color Yellow, Urine Appearance Clear, Urine pH 6.0, Ur Specific [place] <= 1.005, Urine Protein Negative, Urine Glucose (UA) Negative, Urine Ketones Negative, Urine Blood Trace-i, Urine Nitrate Negative, Urine Bilirubin Negative, Urine Urobilinogen 0.2, Ur Leukocyte Esterase Negative Assessment and Plan *Assessment and plan (1) Skin mass: Problem Comment: Complex fungating/ulcerated left shoulder apex lesion Status: Acute Category: Medical Code(s): R22.9 - Localized swelling, mass and lump, unspecified Plan: Excisional biopsy warranted once patient has recovered from pneumonia (deferred to outpatient setting) Keep area clean and dry
[2024-04-14 09:05] LABS: Lactic Acid Follow Up (RFLX 1) 1.7 mmol/L (0.7-2.1)
[2024-04-14 09:11] LABS: Squamous Epithelial Cell,Urine Occasional #/hpf (0-5)
[2024-04-14 09:17] LABS: Troponin I 0.02 ng/ml (0.00-0.034)
[2024-04-14 11:06] LABS: POC Glucose,Bedside 98 (70-110)
--- NOTE | 2024-04-14 12:17 | P.DS_ITS ---
General Admission date:: 04/14/24 HPI HPI HPI: This is a 58-year-old gentleman seen in consultation for evaluation regarding left shoulder apex lesion. He states that he noted a skin lesion approximately 3 years ago. He did not seek medical attention secondary to no insurance . He states that over the past few months the lesion has oozed and blood sometimes . He was admitted for further evaluation/management regarding pneumonia. He believes he is getting better with the breathing . Forwarded from admission H&P: 58-year-old male who reports he has not been to a primary care doctor in more than 25 years and therefore reports no chronic medical conditions, no daily medications presents to the ER with complaints of pain in his right middle back with deep inspiration. He reports he has not felt well in over a week with upper respiratory symptoms and states his cough has been worse in the last 3 days. He has not had documented fever at home. He reports after the pain started, patient looked at his Apple Watch and it was alarming that his heart rate was 150. He states his heart feels like it is racing, he states at this moment he is not short of breath but he has been experiencing short of breath and has pain with deep breathing as previously described. He reports no history of tobacco use, he states he is having a productive cough and that the material he is coughing up smells like . When examining the patient, I asked how long he had had swelling in his legs and he states 5 to 10 years. He also had discoloration around the umbilicus and states that has been present just as long. He has no known cardiac history. He reports no abdominal pain, nausea, and, diarrhea. He reports no dysuria or hematuria. No headache or dizziness. No numbness, tingling, or weakness. Reports large skin mass that is bleeding. Does not take any medicines No recent sick contacts Feels better currently No concerns or complaints Hospital Course Hospital Course Hospital Course: Fan is a 58-year-old male who presented with progressive shortness of breath and admitted for acute hypoxic respiratory failure secondary to community-acquired pneumonia. #Acute hypoxic respiratory failure #Community-acquired pneumonia #Human metapneumovirus ? CTA chest revealed right lower lobe infiltrate, leukocytosis to 14.2. Initial tachycardia with tachypnea. Respiratory panel positive for human metapneu movirus. ? Clinically improved with ceftriaxone, azithromycin. Weaned to room air with appropriate saturations. ? Discharged with cefdinir and azithromycin for 4 more days. Will follow-up with PCP within 1 week. 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 A 2 x 2 cm exophytic skin lesion with scant bleeding. ? Patient states has been ongoing for many months. ? General Surgery consulted, recommended outpatient biopsy given ongoing pneumonia. ? Referred to general surgery, dermatology. #Prediabetes ? Hemoglobin A1c 6.2 on admission. ? Will defer to PCP for further evaluation management. Total time spent on discharge: 32 minutes on chart review, counseling, documentation, and direct care with patient. Exam Data for Last 24 hours Vital signs and Labs for Last 24 Hours: Temp Pulse Resp BP Pulse Ox O2 Del Method O2 Flow Rate 98.4 F 72 17 134/66 94 L Nasal Cannula 1 04/14/24 08:00 04/14/24 08:00 04/14/24 08:00 04/14/24 08:00 04/14/24 08:00 04/14/24 11:00 04/14/24 11:00 Laboratory Results - last 24 hr 04/14/24 01:53: VBG pH 7.37, VBG pCO2 43.5, VBG pO2 29.5, VBG HCO3 24.7, VBG Total CO2 26.0, VBG O2 Saturation 56.5, VBG Base Excess -0.6, VBG Lactic Acid 2.3 H 04/14/24 02:10: WBC 14.2 H, RBC 5.33, Hgb 15.7, Hct 48.2, MCV 90.4, MCH 29.5, MCHC 32.6, RDW 13.7, Plt Count 254, MPV 9.3, Neut % (Auto) 83.6 H, Lymph % (Auto) 12.8, [place] % (Auto) 2.4, Eos % (Auto) 0.1, Baso % (Auto) 0.5, Neut # (Auto) 11.9 H, Lymph # (Auto) 1.8, Hoke # (Auto) 0.3, Eos # (Auto) 0.0, Baso # (Auto) 0.1, PT 10.7, INR 0.97, APTT 25.9, Sodium 134 L, Potassium 4.1, Chloride 96 L, Carbon Dioxide 25, Anion Gap 17.1 H, BUN 19, Creatinine 1.10, Estimated Creat Clear 128, Estimated GFR 68, Est GFR ( Amer) 83, Glucose 116 H, Hemoglobin A1c 6.2 H, Calcium 9.0, Total Bilirubin 1.0, AST 62 H, ALT 36, Alkaline Phosphatase 77, Troponin I < 0.01, NT-Pro-B Natriuret Pep < 20.0, Total Protein 8.5 H, Albumin 4.8, Globulin 3.7 H, Albumin/Globulin Ratio 1.3, Triglycerides 110, Cholesterol 157, LDL Cholesterol Direct 96.05 L, VLDL Cho lesterol 22, HDL Cholesterol 33 L, Cholesterol/HDL Ratio 4.8 H 04/14/24 02:11: Chlamy pneumoniae PCR Not detected, Adenovirus (PCR) Not detected, B. pertussis DNA (PCR) Not detected, Coronavirus OC43 (PCR) Not detected, Coronavirus HKU1 (PCR) Not detected, Coronavirus 229E (PCR) Not detected, SARS-CoV-2 (PCR) Not detected, Coronavirus NL63 (PCR) Not detected, Human Metapneumovir PCR Detected A, Influenza A (H1) PCR Not detected, Influ A (H1N1/09) PCR Not detected, Influenza A (H3) PCR Not detected, Influenza Type A (PCR) Not detected, Influenza Type B (PCR) Not detected, M. pneumoniae (PCR) Not detected, Parainfluenza 1 (PCR) Not detected, Parainfluenza 2 (PCR) Not detected, Parainfluenza 3 (PCR) Not detected, Parainfluenza 4 (PCR) Not detected, RSV (PCR) Not detected, Entero/Rhino (PCR) Not detected 04/14/24 05:53: Troponin I 0.02 04/14/24 07:09: Urine Color Yellow, Urine Appearance Clear, Urine pH 6.0, Ur Specific [place] <= 1.005, Urine Protein Negative, Urine Glucose (UA) Negative, Urine Ketones Negative, Urine Blood Trace-i, Urine Nitrate Negative, Urine Bilirubin Negative, Urine Urobilinogen 0.2, Ur Leukocyte Esterase Negative, Urine RBC None, Urine WBC None, Ur Squamous Epith Cells Occasional, Urine Bacteria None 04/14/24 08:30: Lactate 1.7, Troponin I 0.02 04/14/24 10:58: POC Glucose 98 I & O for Last 24 hours: Intake & Output 04/11/24 04/12/24 04/13/24 04/14/24 23:59 23:59 23:59 23:59 Weight 125.01 kg Constitutional Constitutional: no acute distress and obese *Routine HEENT Exam Head: Present normocephalic Eye: Present EOMI and PERRL ENT: Present mucous membranes moist *Routine Neck Exam Neck: Present supple; Absent lymphadenopathy *Routine Respiratory Exam Respiratory: Present CTA bilaterally *Routine Cardiovascular Exam Cardiovascular: Present RRR *Routine Abdominal Exam Abdominal: Present soft and normoactive bowel sounds; Absent tenderness *Routine Extremities Exam Extremities: Absent cyanosis, clubbing or edema *Routine Skin Exam Skin: Present warm; Absent rash *Routine Neurological Exam Neurological: Present alert and oriented X3 Results Data Completed and Pending Labs on day of discharge: Labs from last 24 hours 04/14/24 04/14/24 04/14/24 10:58 08:30 07:09 WBC RBC Hgb Hct MCV MCH MCHC RDW Plt Count MPV Neut % (Auto) Lymph % (Auto) [place] % (Auto) Eos % (Auto) Baso % (Auto) Neut # (Auto) Lymph # (Auto) [place] # (Auto) Eos # (Auto) Baso # (Auto) PT INR APTT VBG pH VBG pCO2 VBG pO2 VBG HCO3 VBG Total CO2 VBG O2 Saturation VBG Base Excess VBG Lactic Acid Sodium Potassium Chloride Carbon Dioxide Anion Gap BUN Creatinine Estimated Creat Clear Estimated GFR Est GFR ( Amer) Glucose POC Glucose 98 Hemoglobin A1c Lactate 1.7 Calcium Total Bilirubin AST ALT Alkaline Phosphatase Troponin I 0.02 NT-Pro-B Natriuret Pep Total Protein Albumin Globulin Albumin/Globulin Ratio Triglycerides Cholesterol LDL Cholesterol Direct VLDL Cholesterol HDL Cholesterol Cholesterol/HDL Ratio Urine Color Yellow Urine Appearance Clear Urine pH 6.0 Ur Specific [place] <= 1.005 Urine Protein Negative Urine Glucose (UA) Negative Urine Ketones Negative Urine Blood Trace-i Urine Nitrate Negative Urine Bilirubin Negative Urine Urobilinogen 0.2 Ur Leukocyte Esterase Negative Urine RBC None Urine WBC None Ur Squamous Epith Cells Occasional Urine Bacteria None Chlamy pneumoniae PCR Adenovirus (PCR) B. pertussis DNA (PCR) Coronavirus OC43 (PCR) Coronavirus HKU1 (PCR) Coronavirus 229E (PCR) SARS-CoV-2 (PCR) Coronavirus NL63 (PCR) Human Metapneumovir PCR Influenza A (H1) PCR Influ A (H1N1/09) PCR Influenza A (H3) PCR Influenza Type A (PCR) Influenza Type B (PCR) M. pneumoniae (PCR) Parainfluenza 1 (PCR) Parainfluenza 2 (PCR) Parainfluenza 3 (PCR) Parainfluenza 4 (PCR) RSV (PCR) Entero/Rhino (PCR) 04/14/24 04/14/24 04/14/24 05:53 02:11 02:10 WBC 14.2 H RBC 5.33 Hgb 15.7 Hct 48.2 MCV 90.4 MCH 29.5 MCHC 32.6 RDW 13.7 Plt Count 254 MPV 9.3 Neut % (Auto) 83.6 H Lymph % (Auto) 12.8 Hoke % (Auto) 2.4 Eos % (Auto) 0.1 Baso % (Auto) 0.5 Neut # (Auto) 11.9 H Lymph # (Auto) 1.8 [place] # (Auto) 0.3 Eos # (Auto) 0.0 Baso # (Auto) 0.1 PT 10.7 INR 0.97 APTT 25.9 VBG pH VBG pCO2 VBG pO2 VBG HCO3 VBG Total CO2 VBG O2 Saturation VBG Base Excess VBG Lactic Acid Sodium 134 L Potassium 4.1 Chloride 96 L Carbon Dioxide 25 Anion Gap 17.1 H BUN 19 Creatinine 1.10 Estimated Creat Clear 128 Estimated GFR 68 Est GFR ( Amer) 83 Glucose 116 H POC Glucose Hemoglobin A1c 6.2 H Lactate Calcium 9.0 Total Bilirubin 1.0 AST 62 H ALT 36 Alkaline Phosphatase 77 Troponin I 0.02 < 0.01 NT-Pro-B Natriuret Pep < 20.0 Total Protein 8.5 H Albumin 4.8 Globulin 3.7 H Albumin/Globulin Ratio 1.3 Triglycerides 110 Cholesterol 157 LDL Cholesterol Direct 96.05 L VLDL Cholesterol 22 HDL Cholesterol 33 L Cholesterol/HDL Ratio 4.8 H Urine Color Urine Appearance Urine pH Ur Specific [place] Urine Protein Urine Glucose (UA) Urine Ketones Urine Blood Urine Nitrate Urine Bilirubin Urine Urobilinogen Ur Leukocyte Esterase Urine RBC Urine WBC Ur Squamous Epith Cells Urine Bacteria Chlamy pneumoniae PCR Not detected Adenovirus (PCR) Not detected B. pertussis DNA (PCR) Not detected Coronavirus OC43 (PCR) Not detected Coronavirus HKU1 (PCR) Not detected Coronavirus 229E (PCR) Not detected SARS-CoV-2 (PCR) Not detected Coronavirus NL63 (PCR) Not detected Human Metapneumovir PCR Detected A Influenza A (H1) PCR Not detected Influ A (H1N1/09) PCR Not detected Influenza A (H3) PCR Not detected Influenza Type A (PCR) Not detected Influenza Type B (PCR) Not detected M. pneumoniae (PCR) Not detected Parainfluenza 1 (PCR) Not detected Parainfluenza 2 (PCR) Not detected Parainfluenza 3 (PCR) Not detected Parainfluenza 4 (PCR) Not detected RSV (PCR) Not detected Entero/Rhino (PCR) Not detected 04/14/24 01:53 WBC RBC Hgb Hct MCV MCH MCHC RDW Plt Count MPV Neut % (Auto) Lymph % (Auto) [place] % (Auto) Eos % (Auto) Baso % (Auto) Neut # (Auto) Lymph # (Auto) [place] # (Auto) Eos # (Auto) Baso # (Auto) PT INR APTT VBG pH 7.37 VBG pCO2 43.5 VBG pO2 29.5 VBG HCO3 24.7 VBG Total CO2 26.0 VBG O2 Saturation 56.5 VBG Base Excess -0.6 VBG Lactic Acid 2.3 H Sodium Potassium Chloride Carbon Dioxide Anion Gap BUN Creatinine Estimated Creat Clear Estimated GFR Est GFR ( Amer) Glucose POC Glucose Hemoglobin A1c Lactate Calcium Total Bilirubin AST ALT Alkaline Phosphatase Troponin I NT-Pro-B Natriuret Pep Total Protein Albumin Globulin Albumin/Globulin Ratio Triglycerides Cholesterol LDL Cholesterol Direct VLDL Cholesterol HDL Cholesterol Cholesterol/HDL Ratio Urine Color Urine Appearance Urine pH Ur Specific [place] Urine Protein Urine Glucose (UA) Urine Ketones Urine Blood Urine Nitrate Urine Bilirubin Urine Urobilinogen Ur Leukocyte Esterase Urine RBC Urine WBC Ur Squamous Epith Cells Urine Bacteria Chlamy pneumoniae PCR Adenovirus (PCR) B. pertussis DNA (PCR) Coronavirus OC43 (PCR) Coronavirus HKU1 (PCR) Coronavirus 229E (PCR) SARS-CoV-2 (PCR) Coronavirus NL63 (PCR) Human Metapneumovir PCR Influenza A (H1) PCR Influ A (H1N1/09) PCR Influenza A (H3) PCR Influenza Type A (PCR) Influenza Type B (PCR) M. pneumoniae (PCR) Parainfluenza 1 (PCR) Parainfluenza 2 (PCR) Parainfluenza 3 (PCR) Parainfluenza 4 (PCR) RSV (PCR) Entero/Rhino (PCR) DS: Diagnosis Discharge Diagnosis (1) Skin mass: Status: Acute Code(s): R22.9 - Localized swelling, mass and lump, unspecified Problem details: Complex fungating/ulcerated left shoulder apex lesion. Right shoulder apex skin lesions also noted. Meds Home Medications and Allergies Home Medications ?Medication ?Instructions ?Recorded ?Confirmed ?Type No Known Home Medications 04/21/24 04/22/24 History New Prescriptions to Start Prescriptions: Allergies Allergy/AdvReac Type Severity Reaction Status Date / Time morphine AdvReac Nausea Verified 04/22/24 10:12 Discharge Plan Disposition Patient Disposition: Home, Self-Care Condition: Fair Follow up Plan Follow up with: Idalia Pierre MD [Referring] - 06/22/24 9:30 am Oleg Muñoz DO [Staff Physician] - 04/22/24 10:00 am Levi Lott MD [Staff Physician] - 04/21/24 1:45 pm Prescriptions/Medication Reconciliation: No Action No Known Home Medications Problem Reconciliation Problems Reviewed?: Yes Patient Discharge Instructions Patient Instructions: DI for Pneumonia -- Adult, DI for Sepsis -- Adult, Human Metapneumovirus Infection Print Language: Macedonian Providers Primary Care Provider: Provider,Referral Admit Provider: Anthony Dial Attending Provider: Anthony Dial
--- NOTE | 2024-04-16 10:39 | SW/DCPLANNER ---
Phoned patient x2. No answer each time and was unable to leave a message. Genaro FREEMAN Animal Maintenance Supervisor
== END 2024-04-14 13:58 | disposition home or self-care (01) ==
LOC: ER 03:10 → 2ND 03:56
PROVIDERS: Admitting Provider Student in an Organized Health Care Education/Training Program; Emergency Provider Emergency Medicine; Visit Provider Student in an Organized Health Care Education/Training Program
DX: J18.9 Pneumonia, unspecified organism (principal); R22.2 Localized swelling, mass and lump, trunk; B97.81 Human metapneumovirus as the cause of diseases classified elsewhere; Z59.71 Insufficient health insurance coverage; D49.2 Neoplasm of unspecified behavior of bone, soft tissue, and skin; E11.9 Type 2 diabetes mellitus without complications; I10 Essential (primary) hypertension; E78.5 Hyperlipidemia, unspecified; J96.01 Acute respiratory failure with hypoxia
CPT/HCPCS: 36415; 71045; 71275; 74177; 80053; 80061; 81001; 82803; 82962; 83036; 83605; 83880; 84484; 85025; 85610; 85730; 87040; 87070; 87205; 87633; 93005; 93306; 99291; G0378; J1650; J2543; J3370; J7030; J7120; Q9967